=== PATIENT | female | born 1960 | race Caucasian/White ===

== ENCOUNTER 2018-09-12 06:25 | Day surgery (SDC) | payer OTHER ==
[~2018-09-12 06:25] MED LIST: AMBIEN10 MG PO; CLARITIN10 M1 PO; CLONAZEPAM0.5 MG PO; PEPCID20 MG PO
== END 2018-09-12 15:50 | disposition home or self-care (01) ==
LOC: CIR.AMB 06:25
DX: N95.0 Postmenopausal bleeding (principal)

== ENCOUNTER 2020-02-06 10:45 | Inpatient (IN) | payer OTHER ==
[~2020-02-06] VITALS: Ht 160 cm; Wt 67.6 kg
[2020-02-06] MEDS ORDERED: PROTONIX20 MG PO (13:17)
[2020-02-06] MEDS ORDERED: AMBIEN10 MG PO (13:17)
== END 2020-02-11 10:16 | disposition home or self-care (01) | DRG 743 ==
LOC: O/R 02-10 09:38 → SURH 02-10 10:45 → EDSTATUS 02-10 10:45 → O/R 02-10 10:45 → SURH 02-10 12:30 → OB/GYN 02-10 12:31
PROVIDERS: ADMIT Obstetrics & Gynecology Gynecology; ATTEND Obstetrics & Gynecology Gynecology
PROC: 0UT74ZZ Resection of Bilateral Fallopian Tubes, Percutaneous Endoscopic Approach (ICD-10-PCS; 2020-02-10)
PROC: 0UT24ZZ Resection of Bilateral Ovaries, Percutaneous Endoscopic Approach (ICD-10-PCS; 2020-02-10)
PROC: 0UT94ZZ Resection of Uterus, Percutaneous Endoscopic Approach (ICD-10-PCS; principal; 2020-02-10 12:30)
DX: D25.1 Intramural leiomyoma of uterus (principal); D25.2 Subserosal leiomyoma of uterus; N95.0 Postmenopausal bleeding; N72 Inflammatory disease of cervix uteri; N83.292 Other ovarian cyst, left side; N83.291 Other ovarian cyst, right side